=== PATIENT | male | born 1940 | race Caucasian/White ===

== ENCOUNTER 2021-06-26 06:16 | Day surgery (SDC) | payer OTHER ==
[~2021-06-26] VITALS: Ht 183 cm; Wt 100.7 kg
[~2021-06-26 06:16] MED LIST: 3IN1 COMMODE XX; ACETAMINOPHEN500 M1 PO; CITRACAL SOFT1 EACH PO; DONEPEZIL HCL10 MG PO; FEOSOL325 MG PO; FLONASE ALLER15.8 ML; LEVAQUIN500 MG PO; LEXAPRO20 MG PO; LISINOPRIL-HCT1 EAC2 PO; NORVASC5 MG PO; OXYCODONE-ACET1 EAC1 PO; PRESERVISION A1 EAC3 PO; REMERON15 MG PO; SINGULAIR10 MG PO; VITAMIN B-121000 MC1 PO; VITAMIN D325 MC4 PO; XARELTO10 MG PO; ZYRTEC10 M3 PO
--- NOTE | 2021-06-26 15:25 | NUR ---
PT. HAD A LRTKR THIS DATE. PT. WILL D/C HOME WITH SPOUSE. PT. HAS A RW. HE REQUESTS [email or web address] . REFERRAL MADE TO [email or web address].
[2021-06-27 05:55] LABS: BASOPHIL 0.2 % (0-2); EOSINOPHIL 0.2 % (0-7); HCT 32.4 % (42.0-52.0); HGB 10.6 g/dl (13.2-18.0); LYMPHOCYTE 21.8 % (15-48); MCH 30.9 pg (25.0-31.0); MCHC 32.7 g/dL (32.0-36.0); MCV 94.5 fL (78.0-100.0); MONOCYTE 12.8 % (0-12); MPV 10.1 fL (6.0-9.5); NEUTROPHIL 64.6 % (41-80); NRBC 0; PLT 213 K/uL (150-400); RBC 3.43 M/uL (4.70-6.00); RDW 14.2 % (11.5-14.0); WBC 12.8 K/uL (4.0-10.5)
[2021-06-27 06:19] LABS: BUN/CREAT RATIO (CALC) 17.6 RATIO; CREATININE 1.02 mg/dL (0.67-1.17); POTASSIUM 4.3 mmol/L (3.5-5.1)
[2021-06-27] MEDS ORDERED: FEOSOL325 MG PO (10:08)
[2021-06-27] MEDS ORDERED: OXYCODONE-ACET1 EAC1 PO (10:08)
[2021-06-27] MEDS ORDERED: XARELTO10 MG PO (10:32)
--- NOTE | 2021-06-27 14:18 | NUR ---
06/27/21 A referral was received to arrange HH. Per Hieu Bone's note of 06/26/21, a referral was made to [facility].
== END 2021-06-27 11:00 | disposition home or self-care (01) ==
LOC: FAS 06:16 → FOFB 10:25 → FAS 06-27 11:00
PROVIDERS: Legal Medicine
DX: M17.12 Unilateral primary osteoarthritis, left knee (principal); M21.162 Varus deformity, not elsewhere classified, left knee; G89.18 Other acute postprocedural pain; I10 Essential (primary) hypertension; J44.9 Chronic obstructive pulmonary disease, unspecified; F17.220 Nicotine dependence, chewing tobacco, uncomplicated; Z79.899 Other long term (current) drug therapy
CPT/HCPCS: 36415; 73560; 80048; 85025; 86850; 86900; 86901; 94010; 97162; 97166; 97530-GP; 97535; C1713; C1776; J0171; J0697; J1100; J1170; J1885; J2250; J2270; J2704; J2795; J3010; J7120